=== PATIENT | male | born 1995 | race Hispanic/Latino ===

== ENCOUNTER 2021-09-09 21:33 | Emergency (ER) | payer SELFPAY ==
[2021-09-09] MEDS ORDERED: Boostrix 0.5 ML (Tdap) VIAL ONE (21:46)
[2021-09-09] MEDS ORDERED: Amoxicillin/Potassium Clav 875 MG TAB ONE (22:48)
== END 2021-09-09 22:55 | disposition home or self-care (01) ==
LOC: BURERS 21:33
DX: S02.32XA Fracture of orbital floor, left side, initial encounter for closed fracture (principal); I10 Essential (primary) hypertension; Y04.2XXA Assault by strike against or bumped into by another person, initial encounter
CPT/HCPCS: 70486; 90715